=== PATIENT | female | born 1945 | race Hispanic/Latino ===

== ENCOUNTER 2017-11-04 21:04 | Emergency (ER) | payer MEDICARE, OTHER ==
[2017-11-04 21:04] VITALS: BMI 23.5
--- NOTE | 2017-11-04 21:42 | ED PDOC ---
Arrival/HPI - General Chief Complaint: Fever Time Seen by Provider: 11/04/17 21:24 Historian: Patient, Family (spouse/daughter) - History of Present Illness Narrative History of Present Illness (Text): 11/04/17 21:35 pt p/w + sudden onset of rigors/shakes/chills/and now feeling very hot, just prior to ED arrival; + noted fever, pt did not give herself any antipyretics, pt states she felt weak and fatigued yesterday but felt improved today, mild diffuse headache, no light sensitivity, no neck pain, no sore throat, no runny nose, no congestions, no coughing, no sob/palpitations, no abd pain, no n/v, no numbness/tingling, + good appetite, ? dysuria (but has had it for a while); pt denied bowel changes, no fall/trauma/travel, ? sick contact; pt is here for further eval; pt's without other complaints Time/Duration: Prior to Arrival Symptom Onset: Sudden Symptom Course: Improving Context: Home Past Medical History - Provider Review Nursing Documentation Reviewed: Yes - Travel History Have you recently traveled outside [place] w/in the past 3 mons?: No - Past History Past History: No Previous - Infectious Disease Hx of Infectious Diseases: None - Cardiac Hx Cardiac Disorders: Yes Hx Hypertension: Yes Hx Pacemaker: No Other/Comment: Open Heart. Triple bypass - Pulmonary Hx Respiratory Disorders: No - Neurological Hx Neurological Disorder: No Hx Paralysis: No - Hematological/Oncological Hx Blood Transfusions: No Hx Blood Transfusion Reaction: No - Musculoskeletal/Rheumatological Hx Musculoskeletal Disorders: No - Psychiatric Hx Emotional Abuse: No Hx Physical Abuse: No Hx Substance Use: No - Surgical History Hx Appendectomy: Yes Hx Coronary Artery Bypass Graft: Yes Hx Coronary Stent: Yes Hx Hysterectomy: Yes Other/Comment: valve r/p. knee sx. shoulder sx - Anesthesia Hx Anesthesia: Yes Hx Anesthesia Reactions: No Hx Malignant Hyperthermia: No - Suicidal Assessment Feels Threatened In Home Enviroment: No Family/Social History - Physician Review Nursing Documentation Reviewed: Yes Family/Social History: No Known Family HX Smoking Status: Never Smoked Hx Alcohol Use: No Hx Substance Use: No Hx Substance Use Treatment: No Allergies/Home Meds Allergies/Adverse Reactions: Allergies sulfur Allergy (Uncoded 11/04/17 21:08) RASH Home Medications: Home Meds Medication Instructions Recorded Confirmed Aspirin 81 mg PO QAM 12/17/13 11/04/17 hydroCHLOROthiazide [Hydrodiuril] 25 mg PO QAM 12/17/13 11/04/17 Clopidogrel [Plavix] 75 mg PO DAILY 11/04/17 11/04/17 Losartan [Cozaar] 50 mg PO DAILY 11/04/17 11/04/17 Review of Systems - Review of Systems Constitutional: Fevers, Other (chills/sweats) Eyes: Normal ENT: Normal Respiratory: Normal Cardiovascular: Normal Gastrointestinal: Normal Genitourinary Female: Dysuria, Frequency Musculoskeletal: Normal Skin: Normal Neurological: Normal Endocrine: Normal Hemo/Lymphatic: Normal Psychiatric: Normal Physical Exam Vital Signs Reviewed: Yes Vital Signs Temp Pulse Resp BP Pulse Ox 11/04/17 23:04 100.2 F H 72 16 140/70 96 11/04/17 22:04 100.1 F H 11/04/17 21:09 100.1 F H 100 H 15 198/80 H 97 Temperature: Febrile Blood Pressure: Hypertensive Pulse: Tachycardic Respiratory Rate: Normal Appearance: Positive for: Well-Appearing, Non-Toxic, Other (uncomfortable, resting in bed, alert/awake, GCS = 15, oriented x 3, NAD, cooperative) Pain Distress: None Mental Status: Positive for: Alert and Oriented X 3 - Systems Exam Head: Present: Atraumatic, Normocephalic Pupils: Present: PERRL, Other (no photophobia, sclera anicteric, no nystagmus) Extroacular Muscles: Present: EOMI Conjunctiva: Present: Normal Ears: Present: Normal Mouth: Present: Moist Mucous Membranes, Normal Teeth Pharnyx: Present: Normal Nose (External): Present: Atraumatic Nose (Internal): Present: Normal Inspection Neck: Present: Normal Range of Motion, Trachea Midline. No: MIDLINE TENDERNESS Respiratory/Chest: Present: Clear to Auscultation, Good Air Exchange, Other ( CTA b/l, no w/r/r). No: Respiratory Distress, Accessory Muscle Use Cardiovascular: Present: Regular Rate and Rhythm, Normal S1, S2. No: Murmurs Abdomen: Present: Normal Bowel Sounds, Other (well nourished female, no focal tenderness, no johnson's sign, no mcburney's point tenderness, no masses/rebound/ guarding/rigidity) Back: Present: Normal Inspection. No: CVA Tenderness, Midline Tenderness Upper Extremity: Present: Normal Inspection, Normal ROM, NORMAL PULSES, Neurovascularly Intact, Capillary Refill < 2s. No: Edema Lower Extremity: Present: Normal Inspection, NORMAL PULSES, Normal ROM, Neurovascularly Intact, Capillary Refill < 2 s Neurological: Present: GCS=15, CN II-XII Intact, Speech Normal Skin: Present: Warm, Normal Color, Other (cap refill ~ 1sec, no ulcerations, no petechiae) Psychiatric: Present: Alert, Oriented x 3 Medical Decision Making ED Course and Treatment: 11/04/17 21:41 Impression: fever i have consider all the differential diagnosis regarding pt's chief medical complaints/clinical findings, including but are not limited to: fever A/P: fever, likely viral - ua - observe - supportive care discussed with patient and family at length regarding patient's symptoms, given how early her symptoms are, unlikely bacterial; possible flu; discussed about utility of tamiflu, patient is ok with a ? prescription of it and will contact her PCP in the morning and ask if she needs to take it 23:10 - pt remained comfortable, NAD pt is made aware of her medical results given + UA, will recommend for abx family are instructed on keeping an eye on symptoms for the flu (i.e cough/ congestion/sore throat/sob/body malaise), and to take her to see her doctor or return to ED pt is encouraged fluids pt will f/u as directed pt will be discharged home Re-evaluation Time: 23:17 Reassessment Condition: Improving,but remains with symptoms - Lab Interpretations Lab Results: Lab Results 11/04/17 22:00: Urine Color Yellow, Urine Appearance Clear, Urine pH 8.0, Ur Specific [place] 1.010, Urine Protein Negative, Urine Glucose (UA) Negative, Urine Ketones Negative, Urine Blood Trace-intact H, Urine Nitrate Negative, Urine Bilirubin Negative, Urine Urobilinogen 0.2, Ur Leukocyte Esterase Small H , Urine RBC Pending, Urine WBC Pending I have reviewed the lab results: Yes Interpretation: Abnormal lab values (? UTI) - Medication Orders Current Medication Orders: Discontinued Medications Ibuprofen (Motrin Tab) 600 mg PO STAT STA Stop: 11/04/17 21:39 Last Admin: 11/04/17 22:04 Dose: 600 mg MAR Pain/Vitals Document 11/04/17 22:04 AB (Rec: 11/04/17 22:04 AB [email or web address] Pain Reassessment Is This A Pain ReAssessment? No Vitals Temperature (97.6 F-99.6 F) 100.1 F Temperature Source Oral Disposition/Present on Arrival - Present on Arrival Any Indicators Present on Arrival: No History of DVT/PE: No History of Uncontrolled Diabetes: No Urinary Catheter: No History of Decub. Ulcer: No History Surgical Site Infection Following: None - Disposition Have Diagnosis and Disposition been Completed?: Yes Diagnosis: UTI (urinary tract infection), Fever Disposition: HOME/ ROUTINE Disposition Time: 23:17 Patient Plan: Discharge Patient Problems: Current Active Problems Problem Status Onset Fever Acute UTI (urinary tract infection) Acute Condition: STABLE Discharge Instructions (ExitCare): Fever, Adult (DC), Viral Upper Respiratory Infection, Child (DC), Urinary Tract Infections in Adults Print Language: AZERI Additional Instructions: Make sure to see your doctor in 1-2 days DRINK PLENTY OF FLUIDS take your medications as prescribed RETURN TO ED IF worse pain, cant breath, persistent vomiting, high fever >101- 102 for hours, altered behavior, unable to urinate, severe pain with urination, heavy/persistent bleeding, passing out, chest pain, or other medical emergencies Prescriptions: Ibuprofen [Motrin] 400 mg PO QID PRN #30 tab PRN Reason: Fever >100.4 F Sulfamethoxazole/Trimethoprim [Bactrim DS 800 mg-160 mg] 1 tab PO BID #13 tab Referrals: Lj Alexander MD [Primary Care Provider] - Follow up with primary Forms: [employer] (Turkmen)
[2017-11-04 22:53] LABS: URINE BILIRUBIN NEGATIVE (NEGATIVE); URINE BLOOD TRACE-INTACT (NEGATIVE); URINE GLUCOSE (UA) NEGATIVE (NEGATIVE); URINE LEUKOCYTE ESTERASE SMALL Leu/uL (NEGATIVE); URINE NITRATE NEGATIVE (NEGATIVE); URINE PROTEIN NEGATIVE mg/dL (<30 mg/dL); URINE UROBILINOGEN 0.2 E.U./dL (<1 E.U./dL)
[2017-11-04 22:54] LABS: URINE APPEARANCE CLEAR (CLEAR); URINE COLOR YELLOW (YELLOW)
[2017-11-04] MEDS ORDERED: Tmp-Smz 800 mg-160 mg DS Tab PO STA (23:16)
[2017-11-04 23:17] VITALS: RESP 16
[2017-11-04 23:35] LABS: URINE BACTERIA RARE (NEG); URINE EPITHELIAL CELLS 0 - 2 /hpf (0-5); URINE RBC 0 - 2 /hpf (0-2)
[2017-11-04 23:37] VITALS: BP 138/70; PULSE 70; TEMP 99.4; O2SAT 100
== END 2017-11-04 23:37 | disposition home or self-care (01) ==
LOC: ED 21:04
DX: N39.0 Urinary tract infection, site not specified (principal); R50.9 Fever, unspecified; I10 Essential (primary) hypertension

== ENCOUNTER 2018-01-06 15:34 | Emergency (ER) | payer MEDICARE, OTHER ==
[2018-01-06 15:43] VITALS: RESP 18; TEMP 97.7; O2SAT 99; BMI 25.8
--- NOTE | 2018-01-06 16:12 | ED PDOC ---
Arrival/HPI - General Chief Complaint: Lower Extremity Problem/Injury Time Seen by Provider: 01/06/18 15:40 Historian: Patient - History of Present Illness Narrative History of Present Illness (Text): 01/06/18 16:09 This 72 yo female presents to this ED with her c/o right plantar foot pain since this morning. Patient denies trauma, ankle pain, calf pain, knee pain, hip pain, leg swelling, skin rash, weakness, paresthesias, or dizziness. Time/Duration: Other (see hpi) Context: Home Past Medical History - Provider Review Nursing Documentation Reviewed: Yes - Past History Past History: No Previous - Infectious Disease Hx of Infectious Diseases: None - Cardiac Hx Cardiac Disorders: Yes Hx Hypertension: Yes Hx Pacemaker: No Other/Comment: Open Heart. Triple bypass - Pulmonary Hx Respiratory Disorders: No - Neurological Hx Neurological Disorder: No Hx Paralysis: No - Hematological/Oncological Hx Blood Transfusions: No Hx Blood Transfusion Reaction: No - Musculoskeletal/Rheumatological Hx Musculoskeletal Disorders: No - Psychiatric Hx Emotional Abuse: No Hx Physical Abuse: No Hx Substance Use: No - Surgical History Hx Appendectomy: Yes Hx Coronary Artery Bypass Graft: Yes Hx Coronary Stent: Yes Hx Hysterectomy: Yes Other/Comment: valve r/p. knee sx. shoulder sx - Anesthesia Hx Anesthesia: Yes Hx Anesthesia Reactions: No Hx Malignant Hyperthermia: No - Suicidal Assessment Feels Threatened In Home Enviroment: No Family/Social History - Physician Review Nursing Documentation Reviewed: Yes Family/Social History: Other (noncontributory) Smoking Status: Never Smoked Hx Alcohol Use: No Hx Substance Use: No Hx Substance Use Treatment: No Allergies/Home Meds Allergies/Adverse Reactions: Allergies sulfur Allergy (Uncoded 11/04/17 21:08) RASH Home Medications: Home Meds Medication Instructions Recorded Confirmed hydroCHLOROthiazide [Hydrodiuril] 25 mg PO QAM 12/17/13 01/06/18 Losartan [Cozaar] 50 mg PO DAILY 11/04/17 01/06/18 Aspirin [Aspirin Chewable] 1 tab PO DAILY 01/06/18 01/06/18 Review of Systems - Review of Systems Constitutional: Normal. absent: Fatigue, Weight Change, Fevers, Night Sweats Eyes: Normal ENT: Normal Respiratory: Normal Cardiovascular: Normal Gastrointestinal: Normal Genitourinary Female: Normal Musculoskeletal: Other (foot pain) Skin: Normal Neurological: Normal Endocrine: Normal Hemo/Lymphatic: Normal Psychiatric: Normal Physical Exam Vital Signs Temp Pulse Resp BP Pulse Ox 01/06/18 16:59 65 18 131/69 99 01/06/18 15:42 97.7 F 60 18 133/73 99 Temperature: Afebrile Blood Pressure: Normal Pulse: Regular Respiratory Rate: Normal Appearance: Positive for: Well-Appearing, Non-Toxic, Comfortable Pain Distress: Mild Mental Status: Positive for: Alert and Oriented X 3 - Systems Exam Head: Present: Atraumatic, Normocephalic Pupils: Present: PERRL Extroacular Muscles: Present: EOMI Conjunctiva: Present: Normal Mouth: Present: Moist Mucous Membranes Upper Extremity: Present: Normal Inspection, Normal ROM, NORMAL PULSES Lower Extremity: Present: Normal Inspection, NORMAL PULSES, Normal ROM, Tenderness ((+) right plantar facia tenderness on palpation. No Ankle joint tenderness. No posterior ankle tenderness. No calf tenderness. Mcmillan test was negative. Knee joint is not tender with FROM), Neurovascularly Intact, Capillary Refill < 2 s. No: Edema, CALF TENDERNESS, Cyanosis, [place]'s Sign, Swelling, Erythema, Deformity, Temperature Abnormalties Neurological: Present: GCS=15, CN II-XII Intact, Speech Normal, Motor Func Grossly Intact, Normal Sensory Function, Normal Cerebellar Funct Skin: Present: Warm, Dry, Normal Color. No: Rashes Psychiatric: Present: Alert, Oriented x 3, Normal Insight, Normal Concentration Medical Decision Making ED Course and Treatment: 01/06/18 16:40 Re-evaluation. Patient feels better. Discussed results and plan with patient who expresses understanding. All questions answered and there is agreement with the plan to discharge home with instructions. Patient stable for discharge. Return if symptoms persist or worsen. Patient and were recommended to use home walker, to dorsal flex the affected foot every morning before getting up from bed. She can also use plantar fasciitis night splint. To call private telephone service representative for revaluation. return tere emergency if symptoms worsen. Re-evaluation Time: 16:40 Reassessment Condition: Re-examined, Improved - RAD Interpretation Narrative RAD Interpretations (Text): 01/06/18 16:40 Foot x-rays: (+) heel spur. Mild DJD. No Fx. Radiology Orders: 01/06/18 16:08 FOOT RIGHT 3 VIEWS ROUTINE [RAD] Stat - Medication Orders Current Medication Orders: Discontinued Medications Ketorolac Tromethamine (Toradol) 15 mg IM STAT STA Stop: 01/06/18 16:10 Last Admin: 01/06/18 16:23 Dose: 15 mg MAR Pain Assessment Document 01/06/18 16:23 [email or web address] (Rec: 01/06/18 16:23 [email or web address] [id number]ON[facility] CON[facility]ATION OFFICER) Pain Reassessment Is this a pain reassessment? No Sleep Is patient sleeping during reassessment? No Presence of Pain Presence of Pain Yes Pain Scale Used Pain Scale Used Numeric Location Left, Right or Bilateral Right Pain Location Body Site Foot Description Description Constant Intensity of Pain at present 4 Pain Behavior Facial Grimacing Aggravating Factors Changing Position Alleviating Factors/Management Medication Techniques Alleviating Factors Medication IM Administration Charges Document 01/06/18 16:23 [email or web address] (Rec: 01/06/18 16:23 [email or web address] [id number]VIRONMENTAL CONSERVATION OFFICER) Injection Site MAR Injection Site Right Deltoid Charges for Administration # of IM Administrations 1 - Procedure PROCEDURE NOTE (Text): 01/06/18 16:41 Leo Dressing splint was ordered. Disposition/Present on Arrival - Present on Arrival Any Indicators Present on Arrival: No History of DVT/PE: No History of Uncontrolled Diabetes: No Urinary Catheter: No History of Decub. Ulcer: No History Surgical Site Infection Following: None - Disposition Have Diagnosis and Disposition been Completed?: Yes Diagnosis: Plantar fasciitis of right foot Disposition: HOME/ ROUTINE Disposition Time: 16:45 Patient Plan: Discharge Condition: IMPROVED Discharge Instructions (ExitCare): Heel Pain (Caused by Plantar Fasciitis) Additional Instructions: Call private doctor and Foot doctor in 1-2 days for revaluation. Take medication as instructed. Do foot stretching before you stand up in the morning. You may want to buy a plantar fasciitis night splint. Try to keep foot elevated, apply cold compress, and take medication as instructed. Use good shoes with arch support is important. Return to emergency if pain worsen. Do not drive or operate machinery if you take Tylenol with Codeine for at least 12 hours. Prescriptions: Acetaminophen with Codeine [Tylenol with Codeine #3 Tablet] 1 each PO Q6H PRN # 10 tablet PRN Reason: Pain, Severe (8-10) Naproxen [Anaprox] 275 mg PO BID PRN #14 tab PRN Reason: Pain, Severe (8-10) Referrals: Lj Alexander MD [Primary Care Provider] - Follow up with primary Sofía London DPM [Staff Provider] - Follow up with primary Forms: [employer] ([place])
--- NOTE | 2018-01-06 16:44 | RAD ---
PROCEDURE: Right Foot Radiographs. HISTORY: pain COMPARISON: None. FINDINGS: BONES: Plantar and Achilles Tendon insertion calcaneal spurs. JOINTS: Minor hallux valgus deformity SOFT TISSUES: Normal. OTHER FINDINGS: None. IMPRESSION: No acute findings related to/accounting for the clinical presentation. Additional benign and/or incidental findings described above. Concordant results with the preliminary interpretation rendered by the emergency department physician procedure.
[2018-01-06 16:59] VITALS: BP 131/69; PULSE 65
== END 2018-01-06 17:29 | disposition home or self-care (01) ==
LOC: ED 15:34
DX: M72.2 Plantar fascial fibromatosis (principal)
CPT/HCPCS: 73630; 96372; 99284; J1885

== ENCOUNTER 2018-04-14 10:32 | Emergency (ER) | payer MEDICARE, OTHER ==
[2018-04-14 10:32] VITALS: BMI 25.8
[2018-04-14 10:57] VITALS: RESP 17; TEMP 98.7
--- NOTE | 2018-04-14 11:09 | ED PDOC ---
Arrival/HPI - General Chief Complaint: Upper Extremity Problem/Injury Time Seen by Provider: 04/14/18 11:08 Historian: Patient - History of Present Illness Narrative History of Present Illness (Text): 04/14/18 11:09 This 73 yo female presents to this ED c/o left elbow swelling since this morning. Patient stated her elbow was fine when she woke up. Patient admits doing her morning chores in the house, but she does not recall hitting her elbow. Denies pain, trauma, weakness, paresthesias, skin rash, recent fall, recent travel, sob, or CP. Patient is right hand dominant. Denies other complains. Patient takes ASA daily. Time/Duration: Other (see hpi) Context: Home Past Medical History - Provider Review Nursing Documentation Reviewed: Yes - Past History Past History: No Previous - Infectious Disease Hx of Infectious Diseases: None - Cardiac Hx Cardiac Disorders: Yes Hx Hypertension: Yes Hx Pacemaker: No Other/Comment: Open Heart. Triple bypass - Pulmonary Hx Respiratory Disorders: No - Neurological Hx Neurological Disorder: No Hx Paralysis: No - Hematological/Oncological Hx Blood Transfusions: No Hx Blood Transfusion Reaction: No - Musculoskeletal/Rheumatological Hx Musculoskeletal Disorders: No - Psychiatric Hx Emotional Abuse: No Hx Physical Abuse: No Hx Substance Use: No - Surgical History Hx Appendectomy: Yes Hx Coronary Artery Bypass Graft: Yes Hx Coronary Stent: Yes Hx Hysterectomy: Yes Other/Comment: valve r/p. knee sx. shoulder sx - Anesthesia Hx Anesthesia: Yes Hx Anesthesia Reactions: No Hx Malignant Hyperthermia: No - Suicidal Assessment Feels Threatened In Home Enviroment: No Family/Social History - Physician Review Nursing Documentation Reviewed: Yes Family/Social History: Other (noncontributory) Smoking Status: Never Smoked Hx Alcohol Use: No Hx Substance Use: No Hx Substance Use Treatment: No Allergies/Home Meds Allergies/Adverse Reactions: Allergies sulfur Allergy (Uncoded 04/14/18 10:56) RASH Home Medications: Home Meds Medication Instructions Recorded Confirmed Unobtainable 04/14/18 04/14/18 Review of Systems - Review of Systems Constitutional: Normal. absent: Fatigue, Weight Change, Fevers, Night Sweats Eyes: Normal ENT: Normal Respiratory: Normal. absent: SOB Cardiovascular: Normal. absent: Chest Pain Gastrointestinal: Normal. absent: Abdominal Pain, Nausea, Vomiting Genitourinary Female: Normal Musculoskeletal: Other (see hpi) Skin: Normal Neurological: Normal Endocrine: Normal Hemo/Lymphatic: Normal Psychiatric: Normal Physical Exam Vital Signs Temp Pulse Resp BP Pulse Ox 04/14/18 13:13 99 04/14/18 12:52 65 17 179/89 H 99 04/14/18 10:53 98.7 F 64 17 191/98 H 98 Temperature: Afebrile Blood Pressure: Normal Pulse: Regular Respiratory Rate: Normal Appearance: Positive for: Well-Appearing, Non-Toxic, Comfortable Pain Distress: None Mental Status: Positive for: Alert and Oriented X 3 - Systems Exam Head: Present: Atraumatic, Normocephalic Pupils: Present: PERRL Extroacular Muscles: Present: EOMI Conjunctiva: Present: Normal Mouth: Present: Moist Mucous Membranes Neck: Present: Normal Range of Motion Respiratory/Chest: Present: Clear to Auscultation, Good Air Exchange. No: Respiratory Distress, Accessory Muscle Use Cardiovascular: Present: Regular Rate and Rhythm, Normal S1, S2. No: Murmurs Abdomen: No: Tenderness, Distention, Peritoneal Signs Back: Present: Normal Inspection Upper Extremity: Present: NORMAL PULSES, Swelling ((+) posterior elbow is swollen. It resemble olecranon bursitis, but swollen area feels mild dense. No erythema, or ecchymosis. [place] decreased on left elbow due to swelling.), Neurovascularly Intact, Capillary Refill < 2s. No: Cyanosis, Edema, Tenderness , Erythema, Temperature Abnormalties Lower Extremity: Present: Normal Inspection, Normal ROM. No: Edema Neurological: Present: GCS=15, CN II-XII Intact, Speech Normal Skin: Present: Warm, Dry, Normal Color. No: Rashes Psychiatric: Present: Alert, Oriented x 3, Normal Insight, Normal Concentration Medical Decision Making ED Course and Treatment: 04/14/18 13:00 Re-evaluation. Patient feels better. Discussed results and plan with patient who expresses understanding. All questions answered and there is agreement with the plan to discharge home with instructions. Patient stable for discharge. Return if symptoms persist or worsen. Re-evaluation Time: 13:00 Reassessment Condition: Re-examined, Improved - RAD Interpretation Narrative RAD Interpretations (Text): 04/14/18 13:00 PROCEDURE: Radiographs of the left humerus. FINDINGS: BONES: . No fracture or focal lesion. SOFT TISSUES: Punctate calcific rotator cuff tendinopathy and/or calcific bursitis OTHER FINDINGS: Acromioclavicular and glenohumeral hypertrophic arthrosis. IMPRESSION: No fracture, or lytic lesion Arthrosis. Punctate calcific rotator cuff tendinopathy 04/14/18 13:01 PROCEDURE: Radiographs of the left elbow. FINDINGS: BONES: Spurring medial ulna. . No fracture. JOINTS: Medial humeral ulnar arthrosis SOFT TISSUES: Normal. JOINT EFFUSION: None. OTHER FINDINGS: Medial humeral epicondylar trace spurring/ regional ossification calcification - calcific tendinopathy here inferred. IMPRESSION: Arthrosis. No fracture, lytic lesion or effusion noted Radiology Orders: 04/14/18 11:08 ELBOW LEFT 3 VIEWS ROUTINE [RAD] Stat HUMERUS LEFT [RAD] Stat Disposition/Present on Arrival - Present on Arrival Any Indicators Present on Arrival: No History of DVT/PE: No History of Uncontrolled Diabetes: No Urinary Catheter: No History of Decub. Ulcer: No History Surgical Site Infection Following: None - Disposition Have Diagnosis and Disposition been Completed?: Yes Diagnosis: Calcific tendinitis, Swelling of joint, elbow, left Disposition: HOME/ ROUTINE Disposition Time: 13:02 Condition: GOOD Discharge Instructions (ExitCare): Tendonitis (DC) Additional Instructions: Call private doctor for follow up visit in 1-2 days. Apply warmth compress and cold compression back of elbow. Return to emergency if arm becomes swollen and if pain develops. Call Orthopedist for revaluation. Referrals: Lj Alexander MD [Primary Care Provider] - Follow up with primary Julio Bradford DO [Staff Provider] - Follow up with primary Forms: [employer] ([place])
--- NOTE | 2018-04-14 12:01 | RAD ---
Date of service: 04/14/2018 PROCEDURE: Radiographs of the left elbow. HISTORY: pain COMPARISON: No prior. FINDINGS: BONES: Spurring medial ulna. . No fracture. JOINTS: Medial humeral ulnar arthrosis SOFT TISSUES: Normal. JOINT EFFUSION: None. OTHER FINDINGS: Medial humeral epicondylar trace spurring/ regional ossification calcification -calcific tendinopathy here inferred. IMPRESSION: Arthrosis. No fracture, lytic lesion or effusion noted
--- NOTE | 2018-04-14 12:03 | RAD ---
PROCEDURE: Radiographs of the left humerus. HISTORY: pain COMPARISON: None. FINDINGS: BONES: . No fracture or focal lesion. SOFT TISSUES: Punctate calcific rotator cuff tendinopathy and/or calcific bursitis OTHER FINDINGS: Acromioclavicular and glenohumeral hypertrophic arthrosis. IMPRESSION: No fracture, or lytic lesion Arthrosis. Punctate calcific rotator cuff tendinopathy
[2018-04-14 12:56] VITALS: BP 179/89; PULSE 65; O2SAT 99
== END 2018-04-14 12:55 | disposition home or self-care (01) ==
LOC: ED 10:32
DX: M65.232 Calcific tendinitis, left forearm (principal); M25.422 Effusion, left elbow

== ENCOUNTER 2018-12-07 08:51 | Outpatient (CLI) | payer MEDICARE, OTHER | END 2018-12-07 08:52 | disposition home or self-care (01) | LOC: LAB 08:51 ==